=== PATIENT | male | born 1965 | race Caucasian/White ===

== ENCOUNTER 2017-10-01 13:26 | Inpatient (IN) | payer OTHER ==
[~2017-10-01] VITALS: Ht 170.2 cm; Wt 91.2 kg
[~2017-10-01 13:26] MED LIST: DIOVAN HCT 80/11 TA1 PO; VASOTEC5 MG PO
== END 2017-10-10 19:42 | disposition home health service (06) | DRG 872 ==
LOC: ER 13:26 → MEDJ 21:41
PROVIDERS: Urology
PROC: BW25Y0Z Computerized Tomography (CT Scan) of Chest, Abdomen and Pelvis using Other Contrast, Unenhanced and Enhanced (ICD-10-PCS; 2017-10-01)
PROC: 0T778DZ Dilation of Left Ureter with Intraluminal Device, Via Natural or Artificial Opening Endoscopic (ICD-10-PCS; principal; 2017-10-02 19:00)
PROC: B246ZZZ Ultrasonography of Right and Left Heart (ICD-10-PCS; 2017-10-04)
DX: A41.51 Sepsis due to Escherichia coli [E. coli] (principal); N13.6 Pyonephrosis; K57.30 Diverticulosis of large intestine without perforation or abscess without bleeding; E86.0 Dehydration; G47.33 Obstructive sleep apnea (adult) (pediatric); Z16.12 Extended spectrum beta lactamase (ESBL) resistance; I11.9 Hypertensive heart disease without heart failure

== ENCOUNTER 2017-10-27 15:26 | Outpatient (CLI) | payer OTHER | END 2017-10-27 15:42 | disposition home or self-care (01) | LOC: LAB 15:26 | DX: N30.00 Acute cystitis without hematuria (principal) ==

== ENCOUNTER 2017-11-10 06:29 | Day surgery (SDC) | payer OTHER | END 2017-11-10 14:25 | disposition home or self-care (01) | LOC: CIR.AMB 06:29 | DX: N20.1 Calculus of ureter (principal) ==

== ENCOUNTER → 2018-01-04 12:36 | Outpatient (CLI) | payer OTHER | END | disposition home or self-care (01) | LOC: LAB 12:36 | DX: C64.1 Malignant neoplasm of right kidney, except renal pelvis (principal); Z51.81 Encounter for therapeutic drug level monitoring ==

== ENCOUNTER 2018-01-08 07:56 | Outpatient (CLI) | payer OTHER | END 2018-01-08 08:03 | disposition home or self-care (01) | LOC: TOM 07:56 | DX: C64.1 Malignant neoplasm of right kidney, except renal pelvis (principal) ==

== ENCOUNTER 2018-05-04 10:07 | Day surgery (SDC) | payer OTHER | END 2018-05-04 16:10 | disposition home or self-care (01) | LOC: AMB-ENDOS 10:07 | DX: K57.32 Diverticulitis of large intestine without perforation or abscess without bleeding (principal); K64.1 Second degree hemorrhoids ==

== ENCOUNTER 2018-09-25 09:43 | Outpatient (CLI) | payer OTHER | END 2018-09-25 09:45 | disposition home or self-care (01) | LOC: TOM 09:43 | DX: N20.1 Calculus of ureter (principal) ==

== ENCOUNTER 2019-08-02 07:28 | Outpatient (CLI) | payer OTHER | END 2019-08-02 07:49 | disposition home or self-care (01) | LOC: RAD 07:28 | DX: C64.1 Malignant neoplasm of right kidney, except renal pelvis (principal); N20.0 Calculus of kidney; N20.1 Calculus of ureter ==

== ENCOUNTER 2020-06-11 01:53 | Inpatient (IN) | payer OTHER ==
[~2020-06-11] VITALS: Ht 170.2 cm; Wt 89.4 kg
[2020-06-11] MEDS ORDERED: CIPRO250 MG (02:03)
[2020-06-11] MEDS ORDERED: ULTRAM50 MG (02:04)
[2020-06-11] MEDS ORDERED: CLOTRIMAZOLE AF1523 (02:05)
[2020-06-11] MEDS ORDERED: DICLOFENAC SODI50 MG (02:05)
[2020-06-11] MEDS ORDERED: CEFTRIAXONE1 GM (02:06)
[2020-06-11] MEDS ORDERED: LOSARTAN POTASS50 MG (02:12)
[2020-06-13] MEDS ORDERED: AVAPRO150 MG PO (18:33)
[2020-06-13] MEDS ORDERED: MONODOX100 MG PO (18:33)
[2020-06-13] MEDS ORDERED: ZYRTEC10 MG PO (18:33)
[2020-06-13] MEDS ORDERED: INTESTINEX680 M1 PO (18:33)
[2020-06-13] MEDS ORDERED: MEDROLPACK PO (18:33)
== END 2020-06-13 20:48 | disposition home or self-care (01) | DRG 603 ==
LOC: ER 01:53 → SEC-K 08:40 → MEDI 08:40 → MEDJ 06-12 07:13 → MEDI 06-13 18:13
PROVIDERS: ADMIT Internal Medicine Geriatric Medicine; ATTEND Internal Medicine Geriatric Medicine
DX: L03.113 Cellulitis of right upper limb (principal); I10 Essential (primary) hypertension; Z20.822 Contact with and (suspected) exposure to COVID-19

== ENCOUNTER 2020-11-09 10:30 | Outpatient (CLI) | payer OTHER ==
[~2020-11-09 10:30] MED LIST changes: +AVAPRO150 MG PO; +CEFTRIAXONE1 GM; +CIPRO250 MG; +CLOTRIMAZOLE AF1523; +DICLOFENAC SODI50 MG; +INTESTINEX680 M1 PO; +LOSARTAN POTASS50 MG; +MEDROLPACK PO; +MONODOX100 MG PO; +ULTRAM50 MG; +ZYRTEC10 MG PO
== END 2020-11-09 10:45 | disposition home or self-care (01) ==
LOC: SONOGRAMA 10:30 → EDBD 10:30 → MAMO-SONO 10:45 → SONOGRAMA 10:45
PROVIDERS: ATTEND Urology
DX: N20.0 Calculus of kidney (principal)

== ENCOUNTER 2022-01-12 07:56 | Outpatient (CLI) | payer OTHER | END 2022-01-12 08:10 | disposition home or self-care (01) | LOC: SONOGRAMA 07:56 | PROVIDERS: ATTEND Urology | DX: N20.0 Calculus of kidney (principal); N20.1 Calculus of ureter; R31.0 Gross hematuria ==

== ENCOUNTER 2023-01-06 09:05 | Outpatient (CLI) | payer OTHER | END 2023-01-06 09:11 | disposition home or self-care (01) | LOC: SONOGRAMA 09:05 | PROVIDERS: ATTEND Urology | DX: N20.0 Calculus of kidney (principal); N20.1 Calculus of ureter; R31.1 Benign essential microscopic hematuria ==

== ENCOUNTER 2023-04-30 07:02 | Emergency (ER) | payer OTHER ==
[~2023-04-30] VITALS: Ht 170.2 cm; Wt 94.3 kg
[2023-04-30 09:13] LABS: HEMATOCRIT 44.1 % (39.0-48.0); HEMOGLOBIN 15.1 g/dL (13-16.00); MEAN CELL VOLUME 88.2 fL (80.0-100.00); MEAN CORPUSCULAR HEMOGLOBIN 30.1 pg (27.00-32.0); MEAN CORPUSCULAR HGB CONC 34.1 g/dl (32.0-36.0); PLATELET COUNT 188 K/uL (150-450); RED BLOOD COUNT 5.01 M/uL (4.00-6.00); RED CELL DISTRIBUTION WIDTH 15.1 % (11.5-14.5)
== END 2023-04-30 11:25 | disposition home or self-care (01) ==
LOC: ER 07:04
DX: U07.1 COVID-19 (principal); J02.9 Acute pharyngitis, unspecified; I10 Essential (primary) hypertension